=== PATIENT | female | born 1960 | race Caucasian/White ===

== ENCOUNTER 2017-01-02 14:44 | Emergency (ER) | payer OTHER ==
[~2017-01-02] VITALS: Ht 154.9 cm; Wt 47.2 kg
[~2017-01-02 14:44] MED LIST: ALBUTEROL SULF8.5 GM IH; ASPIR-LOW81 MG PO; ATARAX,VISTARIL25 MG PO; ATIVAN0.5 MG PO; AUGMENTIN875 MG PO; CLEOCIN300 MG PO; CLIMARA0.1 MG TP; CLIMARA1 EAC1 TD; CLONIDINE HCL0.1 MG PO; DIPHENHYDRAMINE50 M1 PO; DURAGESIC100 MCG TD; DURAGESIC50 MCG TD; ESTRADERM TD; ESTRADIOL TD; ESTRADIOL TRAN TD; ESTRADIOL1 EAC7; ESTRADIOL1 EAC7 TD; FAMOTIDINE40 MG PO; FENTANYL1 EAC1 TD; FENTANYL1 EAC3 TD; FLEXERIL10 MG PO; Flonase BOTH NARES; HYDROCHLOROTH12.5 M3; INDERAL10 MG PO; IRON325 M1 PO; KEFLEX500 MG PO; LEVAQUIN500 MG PO; LEVOFLOXACIN750 MG PO; LISINOPRIL10 MG; LISINOPRIL10 MG PO; LISINOPRIL20 MG PO; LOW DOSE ASPIRI81 M1 PO; Levaquin PO; MEDROXYPROGESTER5 MG PO; METHYLPHENIDATE20 M1 PO; METOCLOPRAMIDE10 MG PO; MINIVELLE1 EAC1 TD; MINIVELLE1 EACH TD; MUCINEX600 MG PO; NICODERM CQ1 EAC2 TD; NIFEDIPINE ER30 MG PO; NITROFURANTOIN50 MG PO; NORCO 5/3251 TABLET PO; NORVASC10 MG PO; OXYCODONE HCL10 MG PO; OXYCODONE HCL5 MG PO; OXYCODONE-APAP1 EACH; OXYCODONE-APAP1 EACH PO; PANTOPRAZOLE SO40 MG PO; PERCOCET 10-321 EACH PO; PERCOCET 10/1 TABLET PO; PERCOCET 5/31 TABLET PO; PRINIVIL20 MG PO; PROAIR HFA8.5 GM IH; PROMETHAZINE HC25 M1 PO; PROZAC20 M1 PO; PROZAC20 MG PO; PROZAC40 MG PO; PYRIDIUM100 MG PO; RANITIDINE HCL300 MG; REGLAN10 MG PO; REGLAN5 MG PO; RISPERDAL0.25 M1 PO; RISPERDAL1 MG PO; RITALIN10 MG PO; RITALIN20 MG PO; ROXICODONE5 MG PO; SEROQUEL50 MG PO; ULTRAM50 MG PO; VENTOLIN HFA18 GM IH; VIVELLE-DOT0.0375 MG TD; XANAX0.5 MG PO; XANAX1 MG PO; Xanax PO; ZANTAC150 MG PO; ZANTAC300 MG PO; ZOFRAN ODT4 MG PO; ZOFRAN4 MG PO; ZOFRAN8 MG PO; ZOLPIDEM TARTRAT5 MG PO; Zestril,Prinivil PO; [UNRECOGNIZED DRUG - OTHER] TD; [UNRECOGNIZED DRUG - REMARK]; dilaudid PO; lisinopril; tylenol; zyprexa
[2017-01-02 15:29] LABS: EOSINOPHIL (%) 1.5 % (0-5); EOSINOPHIL COUNT 0.1 K/uL (0-0.3); HEMATOCRIT 42.9 % (36.0-46.0); IMMATURE GRANULOCYTE (%) 0.4 % (0.0-0.7); IMMATURE GRANULOCYTE COUNT 0.3 K/uL; LYMPHOCYTE COUNT 1.8 K/uL (1.0-2.8); MCH 31.5 PG (29.0-34.0); MCHC 33.3 G/DL (30.0-36.0); MCV 94.5 FL (83-99); MEAN PLAT.VOLUME 8.8 uM^3 (9.5-12.4); MONOCYTE (%) 9.3 % (3-12); MONOCYTE COUNT 0.8 K/uL (0-0.8); NEUTROPHIL (%) 66.8 % (45-76); NEUTROPHIL COUNT 5.5 K/uL (1.8-6.4); PLATELET COUNT 327 K/uL (156-360); RBC DIS.WIDTH-CV 13.5 % (11.8-14.6); RBC DIS.WIDTH-SD 44.2 % (39-53); RED BLOOD COUNT 4.54 M/uL (3.80-5.20); WHITE BLOOD COUNT 8.2 K/uL (4.1-10.2)
[2017-01-02 15:41] LABS: CHLORIDE 111 mEq/L (99-109); SODIUM 144 mEq/L (136-147)
[2017-01-02 15:43] LABS: GLUCOSE 94 mg/dL (70-99)
[2017-01-02 15:45] LABS: ANION GAP 13 MEQ/L (2-14)
[2017-01-02 15:47] LABS: GFR ESTIMATE (CALCULATED) > 59 mL/min/
[2017-01-02 15:48] LABS: UREA NITROGEN (BUN) 11 mg/dL (9-23)
[2017-01-02] MEDS ORDERED: LISINOPRIL20 MG PO (16:57)
[2017-01-02] MEDS ORDERED: AMOXICILLIN500 MG PO (16:57)
[2017-01-02 17:05] VITALS: BP 210/100
[2017-01-03] MEDS ORDERED: NAPROSYN500 MG PO (05:54)
== END 2017-01-02 17:22 | disposition home or self-care (01) ==
LOC: EME 14:44
PROVIDERS: Emergency Medicine
DX: J32.9 Chronic sinusitis, unspecified (principal); I10 Essential (primary) hypertension; S60.221A Contusion of right hand, initial encounter; J44.9 Chronic obstructive pulmonary disease, unspecified; Z87.442 Personal history of urinary calculi; F17.200 Nicotine dependence, unspecified, uncomplicated
CPT/HCPCS: 70450; 70486; 73130; 80048; 85025; 99281; 99284

== ENCOUNTER 2017-01-03 04:55 | Emergency (ER) | payer OTHER ==
[~2017-01-03] VITALS: Ht 154.9 cm; Wt 49.0 kg
[~2017-01-03 04:55] MED LIST changes: +AMOXICILLIN500 MG PO
[2017-01-03 04:59] VITALS: BP 154/106
[2017-01-03] MEDS ORDERED: NAPROSYN500 MG PO (05:54)
== END 2017-01-03 06:35 | disposition home or self-care (01) ==
LOC: EME 04:55
DX: M79.1 Myalgia (principal); T69.9XXA Effect of reduced temperature, unspecified, initial encounter; Z59.0 Homelessness
CPT/HCPCS: 99281; 99284

== ENCOUNTER 2017-01-13 03:12 | Observation (INO) | payer OTHER ==
[~2017-01-13] VITALS: Ht 154.9 cm; Wt 46.9 kg
[~2017-01-13 03:12] MED LIST changes: +NAPROSYN500 MG PO
[2017-01-13 03:41] LABS: MCH 31.4 PG (29.0-34.0); MCHC 33.6 G/DL (30.0-36.0); MCV 93.2 FL (83-99); MEAN PLAT.VOLUME 8.6 uM^3 (9.5-12.4); PLATELET COUNT 441 K/uL (156-360); RBC DIS.WIDTH-CV 13.8 % (11.8-14.6); RED BLOOD COUNT 4.72 M/uL (3.80-5.20); WHITE BLOOD COUNT 12.3 K/uL (4.1-10.2)
[2017-01-13 03:50] LABS: CHLORIDE 109 mEq/L (99-109); POTASSIUM 3.7 mEq/L (3.7-5.4); SODIUM 146 mEq/L (136-147)
[2017-01-13 03:53] LABS: GLUCOSE 108 mg/dL (70-99)
[2017-01-13 03:54] LABS: ANION GAP 11 MEQ/L (2-14)
[2017-01-13 03:55] LABS: TOTAL BILIRUBIN 0.1 mg/dL (0.0-1.0)
[2017-01-13 03:56] LABS: ALKALINE PHOSPHATASE 74 IU/L (3-129); GFR ESTIMATE (CALCULATED) > 59 mL/min/
[2017-01-13 03:57] LABS: UREA NITROGEN (BUN) 13 mg/dL (9-23)
[2017-01-13 04:00] LABS: LIPASE 87 U/L (1.0-51.0)
[2017-01-13 04:01] LABS: TROP-I INTERPRETATION NEGATIVE; TROPONIN-I < 0.01 ng/mL (0.0-0.30)
[2017-01-13 04:38] LABS: SERUM ETHYL ALCOHOL 11 mg/dL
[2017-01-13 05:20] LABS: ADD MIUA? YES; BILIRUBIN NEGATIVE; BLOOD NEGATIVE; COLOR YELLOW ((YELLOW)); GLUCOSE (STRIP) 150; KETONES NEGATIVE; LEUKOCYTES NEGATIVE; NITRITE NEGATIVE; PROTEIN (STRIP) 30; UROBILINOGEN 0.2 MG/DL (0.2-1.0)
[2017-01-13 05:43] LABS: BACTERIA NONE SEEN /HPF; EPITHELIAL CELLS RARE /HPF; MUCUS 2+ /LPF; RED BLOOD CELLS 0-5 /HPF (0-5); UCUL ADDED? NO; WHITE BLOOD CELLS 0-5 /HPF (0-5)
[2017-01-13 09:54] VITALS: BP 185/86
[2017-01-13 11:52] VITALS: BP 167/81
[2017-01-13 15:13] VITALS: BP 184/88
[2017-01-13 15:44] VITALS: BP 104/61
[2017-01-13] MEDS ORDERED: METRONIDAZOLE500 MG PO (16:20)
[2017-01-13] MEDS ORDERED: CIPRO500 MG PO (16:20)
[2017-01-13] MEDS ORDERED: PRINIVIL20 MG PO (16:23)
== END 2017-01-13 17:13 | disposition home or self-care (01) ==
LOC: EME → EDBD 03:12 → EDOF 08:26 → 5WEST 09:02
PROVIDERS: Emergency Medicine
DX: R10.9 Unspecified abdominal pain (principal); R19.7 Diarrhea, unspecified; R07.9 Chest pain, unspecified; F11.20 Opioid dependence, uncomplicated; F10.10 Alcohol abuse, uncomplicated; I10 Essential (primary) hypertension; F25.9 Schizoaffective disorder, unspecified; J44.9 Chronic obstructive pulmonary disease, unspecified
CPT/HCPCS: 71010; 74177; 80053; 81003; 83605; 83690; 84484; 85027; 87493; 93005; 99281; 99285; G0378; G0480; J0744; J1170; J2270; J2405; J3010; J7030; J7050; S0030

== ENCOUNTER 2017-04-05 19:29 | Emergency (ER) | payer OTHER ==
[~2017-04-05] VITALS: Ht 154.9 cm; Wt 47.7 kg
[~2017-04-05 19:29] MED LIST changes: +CIPRO500 MG PO; +METRONIDAZOLE500 MG PO
[2017-04-05 20:00] VITALS: BP 117/98
== END 2017-04-05 20:26 ==
LOC: EME 19:29
DX: F10.129 Alcohol abuse with intoxication, unspecified (principal); F17.200 Nicotine dependence, unspecified, uncomplicated
CPT/HCPCS: 99281; 99282

== ENCOUNTER 2017-05-04 19:18 | Inpatient (IN) | payer OTHER ==
[~2017-05-04] VITALS: Ht 154.9 cm; Wt 49.6 kg
[2017-05-04 21:25] LABS: CHLORIDE 105 mEq/L (99-109); POTASSIUM 3.4 mEq/L (3.7-5.4); SODIUM 138 mEq/L (136-147)
[2017-05-04 21:27] LABS: GLUCOSE 108 mg/dL (70-99)
[2017-05-04 21:28] LABS: ANION GAP 12 MEQ/L (2-14)
[2017-05-04 21:29] LABS: TOTAL BILIRUBIN 0.6 mg/dL (0.0-1.0)
[2017-05-04 21:30] LABS: SERUM ETHYL ALCOHOL 26 mg/dL
[2017-05-04 21:31] LABS: ALKALINE PHOSPHATASE 63 IU/L (3-129); GFR ESTIMATE (CALCULATED) > 59 mL/min/
[2017-05-04 21:32] LABS: UREA NITROGEN (BUN) 7 mg/dL (9-23)
[2017-05-04 22:02] LABS: ADD MIUA? YES; BILIRUBIN NEGATIVE; BLOOD MODERATE; COLOR YELLOW ((YELLOW)); GLUCOSE (STRIP) NEGATIVE; KETONES NEGATIVE; LEUKOCYTES MODERATE; NITRITE NEGATIVE; PROTEIN (STRIP) 30; SPECIFIC GRAVITY 1.005 (1.000-1.030); UROBILINOGEN 0.2 MG/DL (0.2-1.0)
[2017-05-04 22:07] LABS: BACTERIA RARE /HPF; EPITHELIAL CELLS RARE /HPF; MUCUS TRACE /LPF; UCUL ADDED? NO; WHITE BLOOD CELLS 30-40 /HPF (0-5)
[2017-05-04] MEDS ORDERED: ATARAX,VISTARIL25 MG PO (23:25)
[2017-05-04] MEDS ORDERED: NEURONTIN100 MG PO (23:25)
[2017-05-04 23:53] LABS: EOSINOPHIL (%) 0.1 % (0-5); HEMATOCRIT 37.3 % (36.0-46.0); IMMATURE GRANULOCYTE (%) 0.6 % (0.0-0.7); IMMATURE GRANULOCYTE COUNT 0.1 K/uL; INSTRUMENT ABS NEUTROPHIL CT 14.8 K/uL; MCH 32.6 PG (29.0-34.0); MCV 95.9 FL (83-99); MEAN PLAT.VOLUME 9.3 uM^3 (9.5-12.4); MONOCYTE (%) 10.8 % (3-12); MONOCYTE COUNT 1.9 K/uL (0-0.8); NEUTROPHIL (%) 82.5 % (45-76); NEUTROPHIL COUNT 14.8 K/uL (1.8-6.4); PLATELET COUNT 252 K/uL (156-360); RBC DIS.WIDTH-CV 14.4 % (11.8-14.6); RBC DIS.WIDTH-SD 50.5 % (39-53); RED BLOOD COUNT 3.89 M/uL (3.80-5.20); WHITE BLOOD COUNT 17.9 K/uL (4.1-10.2)
[2017-05-05] VITALS (7 sets, daily range): BP systolic 129–176; BP diastolic 73–99
[2017-05-05 06:55] LABS: EOSINOPHIL (%) 0.1 % (0-5); HEMATOCRIT 38.1 % (36.0-46.0); IMMATURE GRANULOCYTE (%) 0.5 % (0.0-0.7); IMMATURE GRANULOCYTE COUNT 0.1 K/uL; INSTRUMENT ABS NEUTROPHIL CT 14.8 K/uL; LYMPHOCYTE COUNT 1.5 K/uL (1.0-2.8); MCH 33.3 PG (29.0-34.0); MCHC 34.1 G/DL (30.0-36.0); MCV 97.7 FL (83-99); MEAN PLAT.VOLUME 9.6 uM^3 (9.5-12.4); MONOCYTE (%) 12.9 % (3-12); MONOCYTE COUNT 2.4 K/uL (0-0.8); NEUTROPHIL (%) 78.6 % (45-76); NEUTROPHIL COUNT 14.8 K/uL (1.8-6.4); PLATELET COUNT 258 K/uL (156-360); RBC DIS.WIDTH-CV 14.5 % (11.8-14.6); RBC DIS.WIDTH-SD 52.2 % (39-53); WHITE BLOOD COUNT 18.8 K/uL (4.1-10.2)
[2017-05-05 07:16] LABS: ANION GAP 11 MEQ/L (2-14); CHLORIDE 104 MEQ/L (99-109); GFR ESTIMATE (CALCULATED) > 59 mL/min/; GLUCOSE 148 mg/dL (70-99); SAMPLE HEMOLYSIS CHECK 0; SAMPLE ICTERIC CHECK 0; SAMPLE LIPEMIA CHECK 0; SODIUM 136 MEQ/L (136-147); UREA NITROGEN (BUN) 10 mg/dL (9-23)
[2017-05-05 07:20] LABS: POTASSIUM 4.6 MEQ/L (3.7-5.4)
[2017-05-05 09:29] LABS: INTERNAL CONTROL VALID? YES
[2017-05-06] VITALS: BP 155/78
[2017-05-06 04:18] VITALS: BP 159/93
[2017-05-06 06:48] LABS: MCH 32.8 PG (29.0-34.0); MCHC 33.2 G/DL (30.0-36.0); MCV 98.6 FL (83-99); MEAN PLAT.VOLUME 9.4 uM^3 (9.5-12.4); PLATELET COUNT 249 K/uL (156-360); RBC DIS.WIDTH-CV 14.2 % (11.8-14.6); RBC DIS.WIDTH-SD 50.9 % (39-53); RED BLOOD COUNT 3.45 M/uL (3.80-5.20)
[2017-05-06 07:58] VITALS: BP 148/94
[2017-05-06 11:41] VITALS: BP 145/78
[2017-05-06 16:16] VITALS: BP 178/96
[2017-05-06 23:24] VITALS: BP 170/99
[2017-05-07 07:36] VITALS: BP 140/82
[2017-05-07 09:07] LABS: HEMATOCRIT 38.1 % (36.0-46.0); MCH 32.8 PG (29.0-34.0); MCHC 33.1 G/DL (30.0-36.0); MCV 99.2 FL (83-99); MEAN PLAT.VOLUME 9.7 uM^3 (9.5-12.4); RBC DIS.WIDTH-SD 51.7 % (39-53); RED BLOOD COUNT 3.84 M/uL (3.80-5.20); WHITE BLOOD COUNT 11.4 K/uL (4.1-10.2)
[2017-05-07 09:08] LABS: PLATELET COUNT 339 K/uL (156-360)
[2017-05-07] MEDS ORDERED: CIPRO500 MG PO (12:54)
== END 2017-05-07 15:29 | disposition home or self-care (01) | DRG 872 ==
LOC: EME 19:18 → 3EAST 23:41 → EDOF 23:41 → 3EAST 05-05 04:48
PROVIDERS: Emergency Medicine; Internal Medicine
DX: A41.51 Sepsis due to Escherichia coli [E. coli] (principal); F17.210 Nicotine dependence, cigarettes, uncomplicated; G89.4 Chronic pain syndrome; I10 Essential (primary) hypertension; F10.230 Alcohol dependence with withdrawal, uncomplicated; F10.220 Alcohol dependence with intoxication, uncomplicated; Y90.1 Blood alcohol level of 20-39 mg/100 ml; E61.1 Iron deficiency; J43.9 Emphysema, unspecified; E87.6 Hypokalemia; F25.9 Schizoaffective disorder, unspecified; J98.4 Other disorders of lung; K86.1 Other chronic pancreatitis; J98.11 Atelectasis; N13.30 Unspecified hydronephrosis; C95.90 Leukemia, unspecified not having achieved remission; R09.02 Hypoxemia; N28.89 Other specified disorders of kidney and ureter; K86.81 Exocrine pancreatic insufficiency; R16.0 Hepatomegaly, not elsewhere classified; K57.30 Diverticulosis of large intestine without perforation or abscess without bleeding; M41.9 Scoliosis, unspecified; J84.10 Pulmonary fibrosis, unspecified; I51.7 Cardiomegaly; N39.0 Urinary tract infection, site not specified; Z59.0 Homelessness; Z85.43 Personal history of malignant neoplasm of ovary; Z87.442 Personal history of urinary calculi; Z91.19 Patient's noncompliance with other medical treatment and regimen
CPT/HCPCS: 71020; 71250; 74177; 76770; 80048; 80053; 81003; 82105 90; 83605; 85025; 85027; 87040; 87070; 87077; 87086; 87168; 87186; 87205; 87449; 87801; 99202; 99281; 99285; G0480; J0696; J1170; J1644; J1956; J2405; J2543; J3010; J3411; J3475; J7030; J7050; Q0177

== ENCOUNTER 2017-06-04 12:12 | Emergency (ER) | payer OTHER ==
[~2017-06-04] VITALS: Ht 154.9 cm; Wt 49.2 kg
[~2017-06-04 12:12] MED LIST changes: +NEURONTIN100 MG PO
[2017-06-04 12:51] LABS: ADD MIUA? YES; BILIRUBIN NEGATIVE; BLOOD SMALL; COLOR YELLOW ((YELLOW)); GLUCOSE (STRIP) NEGATIVE; KETONES NEGATIVE; LEUKOCYTES NEGATIVE; NITRITE NEGATIVE; PROTEIN (STRIP) NEGATIVE; SPECIFIC GRAVITY 1.008 (1.000-1.030); UROBILINOGEN 0.2 MG/DL (0.2-1.0)
[2017-06-04 13:08] LABS: BACTERIA 3+ /HPF; EPITHELIAL CELLS 1+ /HPF; MUCUS TRACE /LPF; UCUL ADDED? NO; WHITE BLOOD CELLS 0-5 /HPF (0-5)
[2017-06-04 15:11] LABS: HEMATOCRIT 41.2 % (36.0-46.0); MCHC 33.5 G/DL (30.0-36.0); MCV 98.6 FL (83-99); MEAN PLAT.VOLUME 8.8 uM^3 (9.5-12.4); PLATELET COUNT 312 K/uL (156-360); RBC DIS.WIDTH-CV 13.5 % (11.8-14.6); RBC DIS.WIDTH-SD 49.2 % (39-53); RED BLOOD COUNT 4.18 M/uL (3.80-5.20)
[2017-06-04 15:25] LABS: CHLORIDE 111 mEq/L (99-109); POTASSIUM 3.7 mEq/L (3.7-5.4); SODIUM 140 mEq/L (136-147)
[2017-06-04 15:27] LABS: GLUCOSE 122 mg/dL (70-99)
[2017-06-04 15:28] LABS: ANION GAP 9 MEQ/L (2-14)
[2017-06-04 15:29] LABS: TOTAL BILIRUBIN 0.3 mg/dL (0.0-1.0)
[2017-06-04 15:31] LABS: ALKALINE PHOSPHATASE 75 IU/L (3-129); GFR ESTIMATE (CALCULATED) 45 mL/min/
[2017-06-04 15:32] LABS: UREA NITROGEN (BUN) 11 mg/dL (9-23)
[2017-06-04 15:34] LABS: LIPASE 556 U/L (1.0-51.0)
[2017-06-04 16:00] LABS: AMYLASE 101 IU/L (1-118)
[2017-06-04] MEDS ORDERED: PERCOCET 5/31 TABLET PO (18:45)
[2017-06-04] MEDS ORDERED: ZOFRAN4 MG PO (18:47)
[2017-06-04 18:57] VITALS: BP 158/104
== END 2017-06-04 19:49 | disposition home or self-care (01) ==
LOC: EME 12:12
DX: M25.552 Pain in left hip (principal); M25.551 Pain in right hip; F17.200 Nicotine dependence, unspecified, uncomplicated; Z87.442 Personal history of urinary calculi; Z88.1 Allergy status to other antibiotic agents; Z88.6 Allergy status to analgesic agent
CPT/HCPCS: 72170; 76705; 80053; 81003; 82150; 83690; 85027; 99281; 99284

== ENCOUNTER 2017-06-10 12:05 | Observation (INO) | payer OTHER ==
[~2017-06-10] VITALS: Ht 154.9 cm; Wt 48.7 kg
[2017-06-10 12:59] LABS: EOSINOPHIL (%) 0.1 % (0-5); HEMATOCRIT 41.6 % (36.0-46.0); IMMATURE GRANULOCYTE (%) 0.4 % (0.0-0.7); INSTRUMENT ABS NEUTROPHIL CT 9.9 K/uL; LYMPHOCYTE COUNT 0.7 K/uL (1.0-2.8); MCH 32.8 PG (29.0-34.0); MCHC 34.4 G/DL (30.0-36.0); MCV 95.4 FL (83-99); MONOCYTE (%) 2.8 % (3-12); MONOCYTE COUNT 0.3 K/uL (0-0.8); NEUTROPHIL (%) 90.7 % (45-76); NEUTROPHIL COUNT 9.9 K/uL (1.8-6.4); RBC DIS.WIDTH-SD 45.6 % (39-53); RED BLOOD COUNT 4.36 M/uL (3.80-5.20)
[2017-06-10 13:01] LABS: MEAN PLAT.VOLUME 9.6 uM^3 (9.5-12.4); PLATELET COUNT 318 K/uL (156-360)
[2017-06-10 13:21] LABS: TROP-I INTERPRETATION NEGATIVE; TROPONIN-I < 0.01 ng/mL (0.0-0.30)
[2017-06-10 13:39] LABS: CHLORIDE 101 mEq/L (99-109); POTASSIUM 4.1 mEq/L (3.7-5.4); SODIUM 135 mEq/L (136-147)
[2017-06-10 13:40] LABS: GLUCOSE 103 mg/dL (70-99)
[2017-06-10 13:42] LABS: ANION GAP 15 MEQ/L (2-14)
[2017-06-10 13:44] LABS: GFR ESTIMATE (CALCULATED) > 59 mL/min/
[2017-06-10 13:45] LABS: UREA NITROGEN (BUN) 7 mg/dL (9-23)
[2017-06-10 15:32] LABS: LIPASE 21 U/L (1.0-51.0)
[2017-06-10 16:07] VITALS: BP 131/84
[2017-06-11] MEDS ORDERED: LIBRIUM25 MG PO (19:38)
== END 2017-06-10 15:00 | disposition left against medical advice (07) ==
LOC: EME 12:05 → EDOF 14:12
PROVIDERS: Emergency Medicine
DX: R07.2 Precordial pain (principal); Z86.73 Personal history of transient ischemic attack (TIA), and cerebral infarction without residual deficits; I10 Essential (primary) hypertension; F11.20 Opioid dependence, uncomplicated; F10.10 Alcohol abuse, uncomplicated; G89.29 Other chronic pain; M54.9 Dorsalgia, unspecified; J44.9 Chronic obstructive pulmonary disease, unspecified; F25.9 Schizoaffective disorder, unspecified; F17.200 Nicotine dependence, unspecified, uncomplicated; F90.9 Attention-deficit hyperactivity disorder, unspecified type; D64.9 Anemia, unspecified; Z85.43 Personal history of malignant neoplasm of ovary
CPT/HCPCS: 71010; 80048; 83690; 84484; 85025; 93005; 99281; 99285; G0378; J2405; J7030

== ENCOUNTER 2017-06-11 15:43 | Emergency (ER) | payer OTHER ==
[~2017-06-11] VITALS: Ht 154.9 cm; Wt 46.4 kg
[2017-06-11 17:25] LABS: EOSINOPHIL (%) 0.1 % (0-5); HEMATOCRIT 40.9 % (36.0-46.0); IMMATURE GRANULOCYTE (%) 0.4 % (0.0-0.7); INSTRUMENT ABS NEUTROPHIL CT 8.2 K/uL; LYMPHOCYTE COUNT 1.5 K/uL (1.0-2.8); MCH 32.6 PG (29.0-34.0); MCHC 34.2 G/DL (30.0-36.0); MCV 95.3 FL (83-99); MEAN PLAT.VOLUME 9.2 uM^3 (9.5-12.4); MONOCYTE (%) 5.6 % (3-12); MONOCYTE COUNT 0.6 K/uL (0-0.8); NEUTROPHIL (%) 79.4 % (45-76); NEUTROPHIL COUNT 8.2 K/uL (1.8-6.4); PLATELET COUNT 357 K/uL (156-360); RBC DIS.WIDTH-CV 13.1 % (11.8-14.6); RED BLOOD COUNT 4.29 M/uL (3.80-5.20); WHITE BLOOD COUNT 10.3 K/uL (4.1-10.2)
[2017-06-11 17:36] LABS: CHLORIDE 103 mEq/L (99-109); POTASSIUM 3.5 mEq/L (3.7-5.4); SODIUM 136 mEq/L (136-147)
[2017-06-11 17:37] LABS: GLUCOSE 87 mg/dL (70-99)
[2017-06-11 17:39] LABS: ANION GAP 15 MEQ/L (2-14)
[2017-06-11 17:41] LABS: GFR ESTIMATE (CALCULATED) 54 mL/min/; SERUM ETHYL ALCOHOL 18 mg/dL
[2017-06-11 17:42] LABS: UREA NITROGEN (BUN) 10 mg/dL (9-23)
[2017-06-11 17:45] LABS: TROP-I INTERPRETATION NEGATIVE; TROPONIN-I < 0.01 ng/mL (0.0-0.30)
[2017-06-11] MEDS ORDERED: LIBRIUM25 MG PO (19:38)
[2017-06-11 20:09] VITALS: BP 132/92
== END 2017-06-11 20:09 | disposition home or self-care (01) ==
LOC: EME 15:43
PROVIDERS: Emergency Medicine
DX: F10.239 Alcohol dependence with withdrawal, unspecified (principal); R10.11 Right upper quadrant pain; R11.2 Nausea with vomiting, unspecified; R00.0 Tachycardia, unspecified; I10 Essential (primary) hypertension; Z91.14 Patient's other noncompliance with medication regimen; Z90.710 Acquired absence of both cervix and uterus; Z85.43 Personal history of malignant neoplasm of ovary; Z87.442 Personal history of urinary calculi; F17.200 Nicotine dependence, unspecified, uncomplicated
CPT/HCPCS: 80048; 84484; 85025; 99281; 99285; G0480; J3360; J7030

== ENCOUNTER 2017-07-30 18:34 | Inpatient (IN) | payer OTHER ==
[~2017-07-30] VITALS: Ht 154.9 cm; Wt 45.0 kg
[~2017-07-30 18:34] MED LIST changes: +LIBRIUM25 MG PO
[2017-07-30 19:42] LABS: HEMATOCRIT 49.6 % (36.0-46.0); MCH 32.8 PG (29.0-34.0); MCHC 34.7 G/DL (30.0-36.0); MCV 94.5 FL (83-99); MEAN PLAT.VOLUME 10.4 uM^3 (9.5-12.4); PLATELET COUNT 278 K/uL (156-360); RBC DIS.WIDTH-SD 48.6 % (39-53); RED BLOOD COUNT 5.25 M/uL (3.80-5.20); WHITE BLOOD COUNT 12.2 K/uL (4.1-10.2)
[2017-07-30 19:44] LABS: ADD MIUA? YES; BILIRUBIN NEGATIVE; BLOOD SMALL; COLOR STRAW ((YELLOW)); GLUCOSE (STRIP) NEGATIVE; KETONES NEGATIVE; LEUKOCYTES NEGATIVE; NITRITE NEGATIVE; PROTEIN (STRIP) NEGATIVE; SPECIFIC GRAVITY 1.002 (1.000-1.030); UROBILINOGEN 0.2 MG/DL (0.2-1.0)
[2017-07-30 19:52] LABS: CHLORIDE 89 mEq/L (99-109); POTASSIUM 4.2 mEq/L (3.7-5.4); SODIUM 132 mEq/L (136-147)
[2017-07-30 19:54] LABS: GLUCOSE 100 mg/dL (70-99)
[2017-07-30 19:55] LABS: ANION GAP 26 MEQ/L (2-14)
[2017-07-30 19:56] LABS: TOTAL BILIRUBIN 1.1 mg/dL (0.0-1.0)
[2017-07-30 19:57] LABS: ALKALINE PHOSPHATASE 70 IU/L (3-129)
[2017-07-30 19:58] LABS: GFR ESTIMATE (CALCULATED) 27 mL/min/
[2017-07-30 19:59] LABS: UREA NITROGEN (BUN) 17 mg/dL (9-23)
[2017-07-30 20:06] LABS: BACTERIA RARE /HPF; EPITHELIAL CELLS 1+ /HPF; MUCUS NONE SEEN /LPF; RED BLOOD CELLS NONE SEEN /HPF (0-5); UCUL ADDED? NO
[2017-07-30 20:07] LABS: CASTS NONE SEEN /LPF; CRYSTALS NONE SEEN; WHITE BLOOD CELLS 0-5 /HPF (0-5)
[2017-07-30 21:18] LABS: LIPASE 236 U/L (1.0-51.0)
[2017-07-30 21:36] LABS: SERUM ETHYL ALCOHOL 55 mg/dL
[2017-07-30 21:38] LABS: DIRECT BILIRUBIN 0.3 mg/dL (0.0-0.3)
[2017-07-30 22:20] LABS: EOSINOPHIL (%) 0.5 % (0-5); EOSINOPHIL COUNT 0.1 K/uL (0-0.3); IMMATURE GRANULOCYTE (%) 0.4 % (0.0-0.7); IMMATURE GRANULOCYTE COUNT 0.1 K/uL; INSTRUMENT ABS NEUTROPHIL CT 8.6 K/uL; LYMPHOCYTE COUNT 2.3 K/uL (1.0-2.8); MONOCYTE (%) 10.3 % (3-12); MONOCYTE COUNT 1.3 K/uL (0-0.8); NEUTROPHIL (%) 70.3 % (45-76); NEUTROPHIL COUNT 8.6 K/uL (1.8-6.4)
[2017-07-31] VITALS (7 sets, daily range): BP systolic 102–192; BP diastolic 52–94
[2017-07-31] MEDS ORDERED: MUCINEX600 MG PO (01:10)
[2017-07-31] MEDS ORDERED: LISINOPRIL20 MG PO (01:10)
[2017-07-31] MEDS ORDERED: CHLORDIAZEPOXID10 MG PO (01:11)
[2017-07-31] MEDS ORDERED: ONDANSETRON HCL4 MG PO (01:12)
[2017-07-31] MEDS ORDERED: ENDOCET 5-3251 EACH PO (01:14)
[2017-07-31] MEDS ORDERED: METHYLPHENIDATE20 M1 PO (01:15)
[2017-07-31] MEDS ORDERED: ZESTRIL20 MG PO (01:16)
[2017-07-31 07:13] LABS: MAGNESIUM 1.5 mg/dl (1.3-2.7)
[2017-07-31 07:42] LABS: HEMATOCRIT 41.1 % (36.0-46.0); MCH 33.7 PG (29.0-34.0); MCHC 33.8 G/DL (30.0-36.0); MEAN PLAT.VOLUME 10.2 uM^3 (9.5-12.4); PLATELET COUNT 228 K/uL (156-360); RBC DIS.WIDTH-CV 14.7 % (11.8-14.6); RBC DIS.WIDTH-SD 53.6 % (39-53); WHITE BLOOD COUNT 8.1 K/uL (4.1-10.2)
[2017-07-31 07:48] LABS: ANION GAP 11 MEQ/L (2-14); CHLORIDE 100 MEQ/L (99-109); GLUCOSE 81 mg/dL (70-99); POTASSIUM 4.1 MEQ/L (3.7-5.4); SODIUM 132 MEQ/L (136-147); UREA NITROGEN (BUN) 24 mg/dL (9-23)
[2017-07-31 07:50] LABS: RED BLOOD COUNT 4.12 M/uL (3.80-5.20)
[2017-07-31 07:51] LABS: GFR ESTIMATE (CALCULATED) 41 mL/min/
[2017-07-31 07:51] LABS: MCV 99.8 FL (83-99)
[2017-07-31 10:02] LABS: ADD MIUA? YES; BILIRUBIN NEGATIVE; BLOOD MODERATE; COLOR YELLOW ((YELLOW)); GLUCOSE (STRIP) 50; KETONES NEGATIVE; LEUKOCYTES TRACE; NITRITE NEGATIVE; PROTEIN (STRIP) NEGATIVE; SPECIFIC GRAVITY 1.012 (1.000-1.030); UROBILINOGEN 0.2 MG/DL (0.2-1.0)
[2017-07-31 10:15] LABS: BACTERIA 2+ /HPF; EPITHELIAL CELLS 2+ /HPF; MUCUS TRACE /LPF; RED BLOOD CELLS 30-40 /HPF (0-5); UCUL ADDED? YES; WHITE BLOOD CELLS 0-5 /HPF (0-5)
[2017-07-31 10:30] LABS: AMPHETAMINES QUANT VALUE 0 NG/ML; BARBITUATES QUANT VALUE 0 NG/ML; BENZODIAZEPINES, URINE SCREEN POSITIVE (200 ng/mL); MARIJUANA QUANT VALUE 0 NG/ML; PHENCYCLIDINE QUANT VALUE 0 NG/ML
[2017-07-31 20:15] LABS: C DIFF TOXIN NEGATIVE (NEGATIVE)
[2017-07-31 20:31] LABS: PROBE CHECK PASS; SPECIMEN PROCESSING CONTROL PASS
[2017-08-01 06:37] LABS: EOSINOPHIL (%) 1.8 % (0-5); EOSINOPHIL COUNT 0.1 K/uL (0-0.3); HEMATOCRIT 36.9 % (36.0-46.0); IMMATURE GRANULOCYTE (%) 0.3 % (0.0-0.7); INSTRUMENT ABS NEUTROPHIL CT 3.8 K/uL; LYMPHOCYTE COUNT 2.2 K/uL (1.0-2.8); MCHC 33.6 G/DL (30.0-36.0); MCV 98.1 FL (83-99); MEAN PLAT.VOLUME 9.2 uM^3 (9.5-12.4); MONOCYTE (%) 14.6 % (3-12); MONOCYTE COUNT 1.1 K/uL (0-0.8); NEUTROPHIL COUNT 3.8 K/uL (1.8-6.4); PLATELET COUNT 202 K/uL (156-360); RBC DIS.WIDTH-CV 14.5 % (11.8-14.6); RBC DIS.WIDTH-SD 51.8 % (39-53); RED BLOOD COUNT 3.76 M/uL (3.80-5.20); WHITE BLOOD COUNT 7.2 K/uL (4.1-10.2)
[2017-08-01 06:57] LABS: ANION GAP 4 MEQ/L (2-14); CHLORIDE 106 MEQ/L (99-109); GFR ESTIMATE (CALCULATED) > 59 mL/min/; GLUCOSE 92 mg/dL (70-99); POTASSIUM 3.8 MEQ/L (3.7-5.4); SAMPLE HEMOLYSIS CHECK 0; SAMPLE ICTERIC CHECK 0; SAMPLE LIPEMIA CHECK 0; SODIUM 135 MEQ/L (136-147); UREA NITROGEN (BUN) 15 mg/dL (9-23)
[2017-08-01 12:40] VITALS: BP 115/67
[2017-08-01 16:31] VITALS: BP 182/83
[2017-08-01 19:30] VITALS: BP 181/84
[2017-08-01 21:22] VITALS: BP 122/76
[2017-08-02 00:36] VITALS: BP 110/70
[2017-08-02 03:17] VITALS: BP 136/81
[2017-08-02 07:49] VITALS: BP 142/86
[2017-08-02] MEDS ORDERED: PROTONIX40 MG PO (09:14)
[2017-08-02] MEDS ORDERED: METHYLPHENIDATE10 M1 PO (09:20)
[2017-08-02] MEDS ORDERED: MUCINEX600 MG PO (09:20)
[2017-08-02] MEDS ORDERED: PRINIVIL20 MG PO (09:20)
[2017-08-02] MEDS ORDERED: BENTYL20 MG PO (09:20)
[2017-08-02] MEDS ORDERED: NICOTINE PATCH1 EAC1 TD (09:20)
[2017-08-02] MEDS ORDERED: ESTRADIOL1 EAC7 TD (09:21)
[2017-08-02] MEDS ORDERED: ONDANSETRON HCL4 MG PO (09:21)
[2017-08-02] MEDS ORDERED: ENDOCET 5-3251 EACH PO (09:21)
== END 2017-08-02 13:50 | disposition home or self-care (01) | DRG 439 ==
LOC: EME 18:34 → RME 18:34 → 5EAST 07-31 02:46 → EDOF 07-31 02:46 → ENRESERV 07-31 02:48 → 5EAST 07-31 04:37
PROVIDERS: Hospitalist; Internal Medicine; Physician Assistant
DX: K85.20 Alcohol induced acute pancreatitis without necrosis or infection (principal); N17.9 Acute kidney failure, unspecified; E87.2 Acidosis; F25.9 Schizoaffective disorder, unspecified; C95.90 Leukemia, unspecified not having achieved remission; E86.0 Dehydration; F10.20 Alcohol dependence, uncomplicated; Y90.2 Blood alcohol level of 40-59 mg/100 ml; F11.24 Opioid dependence with opioid-induced mood disorder; I10 Essential (primary) hypertension; J44.9 Chronic obstructive pulmonary disease, unspecified; K29.20 Alcoholic gastritis without bleeding; K21.9 Gastro-esophageal reflux disease without esophagitis; F13.10 Sedative, hypnotic or anxiolytic abuse, uncomplicated; F41.9 Anxiety disorder, unspecified; F90.9 Attention-deficit hyperactivity disorder, unspecified type; G89.29 Other chronic pain; M54.9 Dorsalgia, unspecified; F17.200 Nicotine dependence, unspecified, uncomplicated; Z59.0 Homelessness; Z85.43 Personal history of malignant neoplasm of ovary; Z87.442 Personal history of urinary calculi
CPT/HCPCS: 74176; 80048; 80053; 80306 90; 81003; 82248; 82948; 83605; 83690; 83735; 85025; 85027; 87077; 87086; 87186; 87493; 99281; 99285; C9113; G0480; J0360; J1170; J1650; J2060; J2405; J2765; J3010; J7030; J7050; J7120

== ENCOUNTER 2017-09-01 15:14 | Inpatient (IN) | payer OTHER ==
[~2017-09-01] VITALS: Ht 154.9 cm; Wt 48.3 kg
[~2017-09-01 15:14] MED LIST changes: +BENTYL20 MG PO; +CHLORDIAZEPOXID10 MG PO; +ENDOCET 5-3251 EACH PO; +METHYLPHENIDATE10 M1 PO; +NICOTINE PATCH1 EAC1 TD; +ONDANSETRON HCL4 MG PO; +PROTONIX40 MG PO; +ZESTRIL20 MG PO
[2017-09-01 16:00] LABS: HEMATOCRIT 37.2 % (36.0-46.0); MCH 33.9 PG (29.0-34.0); MCHC 34.4 G/DL (30.0-36.0); MCV 98.4 FL (83-99); MEAN PLAT.VOLUME 9.3 uM^3 (9.5-12.4); PLATELET COUNT 214 K/uL (156-360); RBC DIS.WIDTH-CV 14.3 % (11.8-14.6); RBC DIS.WIDTH-SD 52.2 % (39-53); RED BLOOD COUNT 3.78 M/uL (3.80-5.20); WHITE BLOOD COUNT 11.9 K/uL (4.1-10.2)
[2017-09-01 16:09] LABS: CHLORIDE 103 mEq/L (99-109); SODIUM 136 mEq/L (136-147)
[2017-09-01 16:12] LABS: GLUCOSE 90 mg/dL (70-99)
[2017-09-01 16:13] LABS: ANION GAP 13 MEQ/L (2-14); TOTAL BILIRUBIN 0.5 mg/dL (0.0-1.0)
[2017-09-01 16:14] LABS: SERUM ETHYL ALCOHOL 93 mg/dL
[2017-09-01 16:15] LABS: ALKALINE PHOSPHATASE 55 IU/L (3-129); GFR ESTIMATE (CALCULATED) > 59 mL/min/
[2017-09-01 16:16] LABS: UREA NITROGEN (BUN) 12 mg/dL (9-23)
[2017-09-01 16:19] LABS: LIPASE 607 U/L (1.0-51.0)
[2017-09-01 16:26] LABS: ADD MIUA? YES; BILIRUBIN NEGATIVE; BLOOD SMALL; COLOR YELLOW ((YELLOW)); GLUCOSE (STRIP) NEGATIVE; KETONES NEGATIVE; LEUKOCYTES NEGATIVE; NITRITE NEGATIVE; PROTEIN (STRIP) 30; SPECIFIC GRAVITY 1.018 (1.000-1.030); UROBILINOGEN 0.2 MG/DL (0.2-1.0)
[2017-09-01 16:40] LABS: BACTERIA 1+ /HPF; CASTS PRESENT /LPF; CRYSTALS NONE SEEN; EPITHELIAL CELLS 1+ /HPF; MUCUS 2+ /LPF; RED BLOOD CELLS 0-5 /HPF (0-5); WHITE BLOOD CELLS 0-5 /HPF (0-5)
[2017-09-01 16:41] LABS: HYALINE CASTS 0-5 /LPF
[2017-09-01] MEDS ORDERED: NICODERM CQ1 EAC2 TD (18:38)
[2017-09-01] MEDS ORDERED: RITALIN20 MG PO (18:39)
[2017-09-01] MEDS ORDERED: ESTRADIOL1 EAC7 TD (18:40)
[2017-09-01] MEDS ORDERED: SUPER MULTIVIT1 EACH PO (18:40)
[2017-09-01] MEDS ORDERED: IRON325 M1 PO (18:41)
[2017-09-01 20:06] LABS: MAGNESIUM 1.7 mg/dL (1.3-2.7)
[2017-09-01 21:33] VITALS: BP 170/82
[2017-09-01 21:43] VITALS: BP 170/82
[2017-09-02] VITALS (8 sets, daily range): BP systolic 120–187; BP diastolic 72–100
[2017-09-02 06:39] LABS: EOSINOPHIL (%) 2.9 % (0-5); EOSINOPHIL COUNT 0.2 K/uL (0-0.3); IMMATURE GRANULOCYTE (%) 0.4 % (0.0-0.7); INSTRUMENT ABS NEUTROPHIL CT 5.8 K/uL; LYMPHOCYTE COUNT 1.3 K/uL (1.0-2.8); MCH 33.2 PG (29.0-34.0); MCHC 33.2 G/DL (30.0-36.0); MEAN PLAT.VOLUME 9.4 uM^3 (9.5-12.4); MONOCYTE (%) 10.3 % (3-12); MONOCYTE COUNT 0.9 K/uL (0-0.8); NEUTROPHIL (%) 70.1 % (45-76); NEUTROPHIL COUNT 5.8 K/uL (1.8-6.4); PLATELET COUNT 215 K/uL (156-360); RBC DIS.WIDTH-CV 14.4 % (11.8-14.6); RBC DIS.WIDTH-SD 52.5 % (39-53); WHITE BLOOD COUNT 8.3 K/uL (4.1-10.2)
[2017-09-02 07:05] LABS: ANION GAP 9 MEQ/L (2-14); CHLORIDE 103 MEQ/L (99-109); GFR ESTIMATE (CALCULATED) > 59 mL/min/; GLUCOSE 74 mg/dL (70-99); LIPASE 271 U/L (1.0-51.0); MAGNESIUM 1.6 mg/dl (1.3-2.7); POTASSIUM 3.7 MEQ/L (3.7-5.4); SAMPLE HEMOLYSIS CHECK 0; SAMPLE ICTERIC CHECK 0; SAMPLE LIPEMIA CHECK 0; SERUM ETHYL ALCOHOL < 10 mg/dL; SODIUM 138 MEQ/L (136-147); UREA NITROGEN (BUN) 11 mg/dL (9-23)
[2017-09-02 21:51] LABS: POINT-OF-CARE METER ID UU14208753
[2017-09-02] MEDS ORDERED: Thiamine,Vitamin B1 PO (22:57)
[2017-09-02] MEDS ORDERED: METOPROLOL SUCC50 MG PO (22:57)
[2017-09-02] MEDS ORDERED: PRINIVIL20 MG PO (22:57)
[2017-09-02] MEDS ORDERED: FOLIC ACID1 MG PO (22:57)
[2017-09-02] MEDS ORDERED: APRESOLINE50 MG PO (22:57)
[2017-09-03 03:37] VITALS: BP 152/80
[2017-09-03 08:06] VITALS: BP 153/84
[2017-09-03] MEDS ORDERED: PANTOPRAZOLE SO40 MG PO (13:57)
== END 2017-09-03 16:05 | disposition home or self-care (01) | DRG 439 ==
LOC: EME 15:14 → 3EAST 19:35 → EDOF 19:35 → ENRESERV 20:19 → 3EAST 21:07
PROVIDERS: Family Medicine Sports Medicine; Nurse Practitioner Family
DX: K85.20 Alcohol induced acute pancreatitis without necrosis or infection (principal); F10.239 Alcohol dependence with withdrawal, unspecified; F15.23 Other stimulant dependence with withdrawal; Y90.4 Blood alcohol level of 80-99 mg/100 ml; E78.5 Hyperlipidemia, unspecified; I10 Essential (primary) hypertension; E86.0 Dehydration; F17.210 Nicotine dependence, cigarettes, uncomplicated; F90.9 Attention-deficit hyperactivity disorder, unspecified type; K86.1 Other chronic pancreatitis; K80.20 Calculus of gallbladder without cholecystitis without obstruction; F10.229 Alcohol dependence with intoxication, unspecified; F11.24 Opioid dependence with opioid-induced mood disorder; F25.9 Schizoaffective disorder, unspecified; F31.9 Bipolar disorder, unspecified; J44.9 Chronic obstructive pulmonary disease, unspecified; K21.9 Gastro-esophageal reflux disease without esophagitis; G89.4 Chronic pain syndrome; F41.9 Anxiety disorder, unspecified; R10.9 Unspecified abdominal pain; F13.10 Sedative, hypnotic or anxiolytic abuse, uncomplicated; K82.9 Disease of gallbladder, unspecified; Z59.0 Homelessness; Z90.710 Acquired absence of both cervix and uterus; Z87.442 Personal history of urinary calculi; Z56.0 Unemployment, unspecified; Z88.5 Allergy status to narcotic agent; Z88.6 Allergy status to analgesic agent; Z82.49 Family history of ischemic heart disease and other diseases of the circulatory system; Z83.6 Family history of other diseases of the respiratory system
CPT/HCPCS: 73630; 74176; 80048; 80053; 81003; 82948; 83690; 83735; 85025; 85027; 99202; 99281; 99285; G0480; J0360; J1650; J2405; J3010; J3411; J7030; J7120

== ENCOUNTER 2017-10-01 16:14 | Emergency (ER) | payer OTHER ==
[~2017-10-01] VITALS: Ht 154.9 cm; Wt 50.0 kg
[~2017-10-01 16:14] MED LIST changes: +APRESOLINE50 MG PO; +FOLIC ACID1 MG PO; +METOPROLOL SUCC50 MG PO; +SUPER MULTIVIT1 EACH PO; +Thiamine,Vitamin B1 PO
[2017-10-01 17:23] LABS: INFLUENZA A VIRAL ANTIGEN NEGATIVE; INFLUENZA B VIRAL ANTIGEN NEGATIVE
[2017-10-01] MEDS ORDERED: VENTOLIN HFA18 GM IH (17:38)
[2017-10-01] MEDS ORDERED: ZITHROMAX Z-PA250 MG PO (17:38)
[2017-10-01 17:48] VITALS: BP 120/99
== END 2017-10-01 17:50 | disposition home or self-care (01) ==
LOC: EME 16:14
PROVIDERS: Physician Assistant
DX: J06.9 Acute upper respiratory infection, unspecified (principal); J02.9 Acute pharyngitis, unspecified; J44.9 Chronic obstructive pulmonary disease, unspecified; I10 Essential (primary) hypertension; F41.9 Anxiety disorder, unspecified; F25.9 Schizoaffective disorder, unspecified; F17.200 Nicotine dependence, unspecified, uncomplicated; Z86.73 Personal history of transient ischemic attack (TIA), and cerebral infarction without residual deficits; Z87.442 Personal history of urinary calculi; Z88.8 Allergy status to other drugs, medicaments and biological substances
CPT/HCPCS: 71020; 87502; 87651 90; 99281; 99284

== ENCOUNTER 2017-10-12 13:43 | Emergency (ER) | payer OTHER ==
[~2017-10-12 13:43] MED LIST changes: +ZITHROMAX Z-PA250 MG PO
[2017-10-13] MEDS ORDERED: ZITHROMAX Z-PA250 MG PO (09:32)
[2017-10-13] MEDS ORDERED: FLEXERIL10 MG PO (10:42)
== END 2017-10-12 14:10 | disposition left against medical advice (07) ==
LOC: EME 13:43
DX: T50.901A Poisoning by unspecified drugs, medicaments and biological substances, accidental (unintentional), initial encounter (principal); Z53.21 Procedure and treatment not carried out due to patient leaving prior to being seen by health care provider

== ENCOUNTER 2017-10-13 07:44 | Emergency (ER) | payer OTHER ==
[~2017-10-13] VITALS: Ht 154.9 cm; Wt 47.9 kg
[2017-10-13] MEDS ORDERED: ZITHROMAX Z-PA250 MG PO (09:32)
[2017-10-13] MEDS ORDERED: FLEXERIL10 MG PO (10:42)
[2017-10-13 10:50] VITALS: BP 187/94
== END 2017-10-13 10:50 | disposition home or self-care (01) ==
LOC: EME 07:44
DX: J20.9 Acute bronchitis, unspecified (principal); J04.0 Acute laryngitis; G89.29 Other chronic pain; M54.5 Low back pain; I10 Essential (primary) hypertension; F17.200 Nicotine dependence, unspecified, uncomplicated; Z88.1 Allergy status to other antibiotic agents; Z88.5 Allergy status to narcotic agent; Z88.8 Allergy status to other drugs, medicaments and biological substances
CPT/HCPCS: 71020; 99281; 99283

== ENCOUNTER 2017-11-08 08:29 | Emergency (ER) | payer OTHER ==
[~2017-11-08] VITALS: Ht 154.9 cm; Wt 45.4 kg
[2017-11-08 10:49] LABS: BASOPHIL COUNT 0.1 K/uL (0-0.1); EOSINOPHIL (%) 0.9 % (0-5); EOSINOPHIL COUNT 0.1 K/uL (0-0.3); HEMATOCRIT 40.4 % (36.0-46.0); IMMATURE GRANULOCYTE (%) 0.4 % (0.0-0.7); LYMPHOCYTE COUNT 1.6 K/uL (1.0-2.8); MCH 34.9 PG (29.0-34.0); MCHC 34.2 G/DL (30.0-36.0); MCV 102.3 FL (83-99); MEAN PLAT.VOLUME 10.1 uM^3 (9.5-12.4); MONOCYTE (%) 8.8 % (3-12); MONOCYTE COUNT 0.8 K/uL (0-0.8); NEUTROPHIL (%) 72.5 % (45-76); PLATELET COUNT 324 K/uL (156-360); RBC DIS.WIDTH-CV 13.2 % (11.8-14.6); RBC DIS.WIDTH-SD 50.4 % (39-53); RED BLOOD COUNT 3.95 M/uL (3.80-5.20); WHITE BLOOD COUNT 9.6 K/uL (4.1-10.2)
[2017-11-08 11:00] LABS: CHLORIDE 102 mEq/L (99-109); POTASSIUM 4.6 mEq/L (3.7-5.4); SODIUM 138 mEq/L (136-147)
[2017-11-08 11:01] LABS: MAGNESIUM 2.4 mg/dL (1.3-2.7)
[2017-11-08 11:03] LABS: GLUCOSE 89 mg/dL (70-99)
[2017-11-08 11:04] LABS: ANION GAP 12 MEQ/L (2-14)
[2017-11-08 11:05] LABS: TOTAL BILIRUBIN 0.5 mg/dL (0.0-1.0)
[2017-11-08 11:06] LABS: ALKALINE PHOSPHATASE 58 IU/L (3-129); GFR ESTIMATE (CALCULATED) > 59 mL/min/
[2017-11-08 11:08] LABS: UREA NITROGEN (BUN) 16 mg/dL (9-23)
[2017-11-08] MEDS ORDERED: LIDODERM 5% P1 PATCH TD (13:04)
[2017-11-08] MEDS ORDERED: ZOFRAN4 MG PO (13:06)
[2017-11-08] MEDS ORDERED: LISINOPRIL20 MG PO (13:24)
[2017-11-08 14:09] VITALS: BP 192/109
== END 2017-11-08 14:10 | disposition home or self-care (01) ==
LOC: EME 08:29
PROVIDERS: Physician Assistant
DX: Z76.0 Encounter for issue of repeat prescription (principal); R11.2 Nausea with vomiting, unspecified; F10.129 Alcohol abuse with intoxication, unspecified; S90.822A Blister (nonthermal), left foot, initial encounter; G89.29 Other chronic pain; M54.9 Dorsalgia, unspecified; I10 Essential (primary) hypertension; J44.9 Chronic obstructive pulmonary disease, unspecified; F41.9 Anxiety disorder, unspecified; F25.9 Schizoaffective disorder, unspecified; F17.200 Nicotine dependence, unspecified, uncomplicated; Z86.73 Personal history of transient ischemic attack (TIA), and cerebral infarction without residual deficits; Z85.9 Personal history of malignant neoplasm, unspecified; Z88.5 Allergy status to narcotic agent; Z88.1 Allergy status to other antibiotic agents; Z88.6 Allergy status to analgesic agent
CPT/HCPCS: 80053; 83735; 85025; J7050; J7120

== ENCOUNTER 2017-11-18 23:10 | Emergency (ER) | payer OTHER ==
[~2017-11-18] VITALS: Ht 154.9 cm; Wt 47.1 kg
[~2017-11-18 23:10] MED LIST changes: +LIDODERM 5% P1 PATCH TD
[2017-11-18 23:32] VITALS: BP 204/127
[2017-11-19 01:11] LABS: HEMATOCRIT 40.6 % (36.0-46.0); HEMOGLOBIN 13.8 G/DL (11.9-15.5); MCH 34.7 PG (29.0-34.0); PLATELET COUNT 273 K/uL (156-360); RBC DIS.WIDTH-CV 12.7 % (11.8-14.6); RBC DIS.WIDTH-SD 47.9 % (39-53); RED BLOOD COUNT 3.98 M/uL (3.80-5.20); WHITE BLOOD COUNT 10.3 K/uL (4.1-10.2)
[2017-11-19] MEDS ORDERED: CLIMARA0.1 MG TP (01:29)
[2017-11-19] MEDS ORDERED: LIBRIUM25 MG PO (01:29)
[2017-11-19 01:33] LABS: CHLORIDE 103 mEq/L (99-109); POTASSIUM 3.6 mEq/L (3.7-5.4); SODIUM 139 mEq/L (136-147)
[2017-11-19 01:34] LABS: GLUCOSE 102 mg/dL (70-99)
[2017-11-19 01:38] LABS: CREATININE 1.1 mg/dL (0.6-1.3); GFR ESTIMATE (CALCULATED) 54 mL/min/
[2017-11-19 01:39] LABS: UREA NITROGEN (BUN) 16 mg/dL (9-23)
[2017-11-19 02:44] LABS: APPEARANCE CLOUDY ((CLEAR)); BILIRUBIN NEGATIVE; BLOOD SMALL; COLOR YELLOW ((YELLOW)); GLUCOSE (STRIP) 50; KETONES NEGATIVE; LEUKOCYTES TRACE; NITRITE NEGATIVE; PROTEIN (STRIP) 100; SPECIFIC GRAVITY 1.021 (1.000-1.030)
[2017-11-19 02:50] LABS: BACTERIA RARE /HPF; CALCIUM OXALATE CRYSTALS 1+ /HPF; EPITHELIAL CELLS RARE /HPF; MUCUS 2+ /LPF; RED BLOOD CELLS 30-40 /HPF (0-5); UCUL ADDED? YES
== END 2017-11-19 02:32 | disposition home or self-care (01) ==
LOC: EME 23:10
DX: Z76.0 Encounter for issue of repeat prescription (principal); G89.29 Other chronic pain; F10.129 Alcohol abuse with intoxication, unspecified; R63.4 Abnormal weight loss; M54.2 Cervicalgia; Z79.890 Hormone replacement therapy; F17.200 Nicotine dependence, unspecified, uncomplicated
CPT/HCPCS: 80048; 81003; 85027; 87086; 99281; 99284

== ENCOUNTER 2017-11-21 07:59 | Emergency (ER) | payer OTHER ==
[~2017-11-21] VITALS: Ht 154.9 cm; Wt 59.1 kg
[2017-11-21 12:44] LABS: CHLORIDE 107 mEq/L (99-109); POTASSIUM 4.2 mEq/L (3.7-5.4); SODIUM 139 mEq/L (136-147)
[2017-11-21 12:46] LABS: GLUCOSE 79 mg/dL (70-99)
[2017-11-21 12:49] LABS: CREATININE 0.9 mg/dL (0.6-1.3); GFR ESTIMATE (CALCULATED) > 59 mL/min/
[2017-11-21 12:50] LABS: UREA NITROGEN (BUN) 20 mg/dL (9-23)
[2017-11-21 12:52] LABS: CREATINE KINASE 60 IU/L (1-294)
[2017-11-21] MEDS ORDERED: PERCOCET 10/1 TABLET PO (13:01)
[2017-11-21 13:13] VITALS: BP 149/93
== END 2017-11-21 13:13 | disposition home or self-care (01) ==
LOC: EME 07:59
PROVIDERS: Physician Assistant
DX: M79.605 Pain in left leg (principal); M79.604 Pain in right leg; J44.9 Chronic obstructive pulmonary disease, unspecified; I10 Essential (primary) hypertension; F41.9 Anxiety disorder, unspecified; F25.9 Schizoaffective disorder, unspecified; F17.200 Nicotine dependence, unspecified, uncomplicated; Z86.73 Personal history of transient ischemic attack (TIA), and cerebral infarction without residual deficits; Z90.710 Acquired absence of both cervix and uterus; Z85.9 Personal history of malignant neoplasm, unspecified; Z88.5 Allergy status to narcotic agent; Z88.6 Allergy status to analgesic agent; Z88.8 Allergy status to other drugs, medicaments and biological substances; Z88.1 Allergy status to other antibiotic agents
CPT/HCPCS: 80048; 82550; 99281; 99283

== ENCOUNTER 2017-11-22 17:57 | Emergency (ER) | payer OTHER ==
[~2017-11-22] VITALS: Ht 154.9 cm; Wt 50.0 kg
[2017-11-22 17:59] VITALS: BP 161/104
== END 2017-11-22 21:19 | disposition home or self-care (01) ==
LOC: EME 17:57
DX: G89.29 Other chronic pain (principal); M54.5 Low back pain; M79.604 Pain in right leg; M79.605 Pain in left leg; Z88.5 Allergy status to narcotic agent; F17.200 Nicotine dependence, unspecified, uncomplicated
CPT/HCPCS: 99281; 99284

== ENCOUNTER 2017-11-30 08:05 | Emergency (ER) | payer OTHER ==
[~2017-11-30] VITALS: Ht 154.9 cm; Wt 56.6 kg
[2017-11-30 08:49] LABS: HEMATOCRIT 41.2 % (36.0-46.0); HEMOGLOBIN 14.1 G/DL (11.9-15.5); MCH 34.8 PG (29.0-34.0); MCHC 34.2 G/DL (30.0-36.0); MCV 101.7 FL (83-99); PLATELET COUNT 307 K/uL (156-360); RBC DIS.WIDTH-CV 12.9 % (11.8-14.6); RBC DIS.WIDTH-SD 48.5 % (39-53); RED BLOOD COUNT 4.05 M/uL (3.80-5.20); WHITE BLOOD COUNT 10.1 K/uL (4.1-10.2)
[2017-11-30 09:00] LABS: ALBUMIN 3.7 g/dL (3.2-4.8); CHLORIDE 108 mEq/L (99-109); POTASSIUM 4.4 mEq/L (3.7-5.4); SODIUM 138 mEq/L (136-147)
[2017-11-30 09:01] LABS: AMYLASE 39 IU/L (1-118)
[2017-11-30 09:03] LABS: GLUCOSE 105 mg/dL (70-99); TOTAL PROTEIN 6.1 g/dL (6.4-8.3)
[2017-11-30 09:05] LABS: TOTAL BILIRUBIN 0.6 mg/dL (0.0-1.0)
[2017-11-30 09:06] LABS: ALKALINE PHOSPHATASE 45 IU/L (3-129); CREATININE 0.8 mg/dL (0.6-1.3); GFR ESTIMATE (CALCULATED) > 59 mL/min/
[2017-11-30 09:07] LABS: UREA NITROGEN (BUN) 21 mg/dL (9-23)
[2017-11-30 09:08] LABS: AST (GOT) 30 IU/L (2-34)
[2017-11-30 09:09] LABS: ALT (GPT) 20 IU/L (3-49)
[2017-11-30 09:10] LABS: CREATINE KINASE 147 IU/L (1-294); LIPASE 56 U/L (1.0-51.0)
[2017-11-30 11:27] VITALS: BP 135/98
== END 2017-11-30 11:27 | disposition home or self-care (01) ==
LOC: EME 08:05
PROVIDERS: Nurse Practitioner Family
DX: M79.604 Pain in right leg (principal); M79.605 Pain in left leg; M25.552 Pain in left hip; R10.84 Generalized abdominal pain; M54.9 Dorsalgia, unspecified; G89.29 Other chronic pain; R11.0 Nausea; R19.7 Diarrhea, unspecified; J44.9 Chronic obstructive pulmonary disease, unspecified; I10 Essential (primary) hypertension; Z87.442 Personal history of urinary calculi; Z86.73 Personal history of transient ischemic attack (TIA), and cerebral infarction without residual deficits; F41.9 Anxiety disorder, unspecified; Z88.1 Allergy status to other antibiotic agents; Z88.5 Allergy status to narcotic agent; Z88.6 Allergy status to analgesic agent; Z88.8 Allergy status to other drugs, medicaments and biological substances; F17.200 Nicotine dependence, unspecified, uncomplicated
CPT/HCPCS: 73502; 80053; 82150; 82550; 83690; 85027; 99281; 99284

== ENCOUNTER 2017-12-12 18:45 | Emergency (ER) | payer OTHER ==
[~2017-12-12] VITALS: Ht 154.9 cm; Wt 49.2 kg
[2017-12-12] MEDS ORDERED: ZITHROMAX250 MG PO (22:07)
[2017-12-12] MEDS ORDERED: PREDNISONE50 MG PO (22:07)
[2017-12-12] MEDS ORDERED: PROVENTIL HFA6.7 GM IH (22:07)
[2017-12-12 22:36] VITALS: BP 161/115
== END 2017-12-12 22:38 | disposition home or self-care (01) ==
LOC: EME 18:45
PROVIDERS: Emergency Medicine
DX: J44.1 Chronic obstructive pulmonary disease with (acute) exacerbation (principal); J20.9 Acute bronchitis, unspecified; J44.0 Chronic obstructive pulmonary disease with (acute) lower respiratory infection; F17.200 Nicotine dependence, unspecified, uncomplicated; I10 Essential (primary) hypertension; F41.9 Anxiety disorder, unspecified; Z86.73 Personal history of transient ischemic attack (TIA), and cerebral infarction without residual deficits; Z88.1 Allergy status to other antibiotic agents; Z88.5 Allergy status to narcotic agent
CPT/HCPCS: 71045; 87502; 94640; 99281; 99283; J7644

== ENCOUNTER 2017-12-18 18:38 | Emergency (ER) | payer OTHER ==
[~2017-12-18] VITALS: Ht 154.9 cm; Wt 50.1 kg
[~2017-12-18 18:38] MED LIST changes: +PREDNISONE50 MG PO; +PROVENTIL HFA6.7 GM IH; +ZITHROMAX250 MG PO
[2017-12-18 22:04] VITALS: BP 126/91
== END 2017-12-18 22:04 | disposition home or self-care (01) ==
LOC: EME 18:38
DX: M54.2 Cervicalgia (principal); J44.9 Chronic obstructive pulmonary disease, unspecified; I10 Essential (primary) hypertension; F41.9 Anxiety disorder, unspecified; F25.9 Schizoaffective disorder, unspecified; F17.200 Nicotine dependence, unspecified, uncomplicated; Z79.899 Other long term (current) drug therapy; Z91.14 Patient's other noncompliance with medication regimen; Z87.442 Personal history of urinary calculi; Z85.9 Personal history of malignant neoplasm, unspecified; Z90.710 Acquired absence of both cervix and uterus; Z86.73 Personal history of transient ischemic attack (TIA), and cerebral infarction without residual deficits; Z59.0 Homelessness; Z88.5 Allergy status to narcotic agent; Z88.1 Allergy status to other antibiotic agents; Z88.8 Allergy status to other drugs, medicaments and biological substances; Z88.6 Allergy status to analgesic agent
CPT/HCPCS: 99281; 99283

== ENCOUNTER 2017-12-27 01:49 | Emergency (ER) | payer OTHER ==
[~2017-12-27] VITALS: Ht 154.9 cm; Wt 50.0 kg
[2017-12-27 02:44] VITALS: BP 190/105
== END 2017-12-27 02:45 ==
LOC: EME 01:49
DX: F10.129 Alcohol abuse with intoxication, unspecified (principal); Z88.5 Allergy status to narcotic agent; Z88.1 Allergy status to other antibiotic agents; Z88.6 Allergy status to analgesic agent; Z88.8 Allergy status to other drugs, medicaments and biological substances
CPT/HCPCS: 99281; 99284

== ENCOUNTER 2018-02-20 13:34 | Emergency (ER) | payer OTHER ==
[~2018-02-20] VITALS: Ht 154.9 cm; Wt 46.3 kg
[2018-02-20] MEDS ORDERED: ZOFRAN ODT4 MG PO (14:53)
[2018-02-20 14:57] VITALS: BP 112/67
== END 2018-02-20 14:58 | disposition home or self-care (01) ==
LOC: EME 13:34
DX: Z76.0 Encounter for issue of repeat prescription (principal); J44.9 Chronic obstructive pulmonary disease, unspecified; I10 Essential (primary) hypertension; F41.9 Anxiety disorder, unspecified; F25.9 Schizoaffective disorder, unspecified; F17.200 Nicotine dependence, unspecified, uncomplicated; Z87.19 Personal history of other diseases of the digestive system; Z98.890 Other specified postprocedural states; Z90.710 Acquired absence of both cervix and uterus; Z86.73 Personal history of transient ischemic attack (TIA), and cerebral infarction without residual deficits; Z87.442 Personal history of urinary calculi; Z85.9 Personal history of malignant neoplasm, unspecified; Z88.6 Allergy status to analgesic agent; Z88.5 Allergy status to narcotic agent; Z88.1 Allergy status to other antibiotic agents; Z88.8 Allergy status to other drugs, medicaments and biological substances
CPT/HCPCS: 99281; 99284

== ENCOUNTER 2018-03-27 19:23 | Emergency (ER) | payer OTHER ==
[~2018-03-27] VITALS: Ht 154.9 cm; Wt 43.6 kg
[2018-03-27 19:52] LABS: BASOPHIL (%) 0.5 % (0-1); EOSINOPHIL (%) 0.8 % (0-5); EOSINOPHIL COUNT 0.1 K/uL (0-0.3); HEMATOCRIT 45.1 % (36.0-46.0); HEMOGLOBIN 15.8 G/DL (11.9-15.5); IMMATURE GRANULOCYTE (%) 0.1 % (0.0-0.7); LYMPHOCYTE (%) 20.5 % (15-42); LYMPHOCYTE COUNT 1.7 K/uL (1.0-2.8); MCH 33.5 PG (29.0-34.0); MCV 95.6 FL (83-99); MONOCYTE (%) 8.9 % (3-12); MONOCYTE COUNT 0.8 K/uL (0-0.8); NEUTROPHIL (%) 69.2 % (45-76); NEUTROPHIL COUNT 5.8 K/uL (1.8-6.4); PLATELET COUNT 198 K/uL (156-360); RBC DIS.WIDTH-CV 11.9 % (11.8-14.6); RBC DIS.WIDTH-SD 42.3 % (39-53); RED BLOOD COUNT 4.72 M/uL (3.80-5.20); WHITE BLOOD COUNT 8.4 K/uL (4.1-10.2)
[2018-03-27 20:03] LABS: ALBUMIN 4.5 g/dL (3.2-4.8); CHLORIDE 101 mEq/L (99-109); POTASSIUM 3.4 mEq/L (3.7-5.4); SODIUM 137 mEq/L (136-147)
[2018-03-27 20:06] LABS: GLUCOSE 118 mg/dL (70-99); TOTAL PROTEIN 7.8 g/dL (6.4-8.3)
[2018-03-27 20:09] LABS: ALKALINE PHOSPHATASE 66 IU/L (3-129); CREATININE 0.9 mg/dL (0.6-1.3); GFR ESTIMATE (CALCULATED) > 59 mL/min/; SERUM ETHYL ALCOHOL 52 mg/dL
[2018-03-27 20:11] LABS: AST (GOT) 60 IU/L (2-34); DIRECT BILIRUBIN 0.4 mg/dL (0.0-0.3); UREA NITROGEN (BUN) 9 mg/dL (9-23)
[2018-03-27 20:12] LABS: ALT (GPT) 21 IU/L (3-49)
[2018-03-27 20:13] LABS: LIPASE 73 U/L (1.0-51.0)
[2018-03-27 21:02] LABS: TROP-I INTERPRETATION NEGATIVE; TROPONIN-I 0.02 ng/mL (0.0-0.30)
[2018-03-27 22:18] LABS: APPEARANCE CLEAR ((CLEAR)); BILIRUBIN NEGATIVE; BLOOD SMALL; COLOR YELLOW ((YELLOW)); GLUCOSE (STRIP) NEGATIVE; KETONES NEGATIVE; LEUKOCYTES NEGATIVE; NITRITE NEGATIVE; PROTEIN (STRIP) 100; SPECIFIC GRAVITY 1.014 (1.000-1.030); UROBILINOGEN 0.2 MG/DL (0.2-1.0)
[2018-03-27 22:25] LABS: BACTERIA NONE SEEN /HPF; EPITHELIAL CELLS RARE /HPF; HYALINE CASTS 0-5 /LPF; MUCUS TRACE /LPF; WHITE BLOOD CELLS 0-5 /HPF (0-5)
[2018-03-27 23:11] LABS: TROP-I INTERPRETATION NEGATIVE; TROPONIN-I 0.01 ng/mL (0.0-0.30)
[2018-03-28 00:03] LABS: AMPHETAMINE NEGATIVE (500 ng/mL); BARBITURATES NEGATIVE (200 ng/mL); BENZODIAZEPINES PRESUMPTIVE POSITIVE (150 ng/mL); BUPRENORPHINE PRESUMPTIVE POSITIVE (10 ng/mL); COCAINE NEGATIVE (150 ng/mL); METHADONE NEGATIVE (200 ng/mL); METHAMPHETAMINE NEGATIVE (500 ng/mL); OPIATES (MORPHINE) NEGATIVE (100 ng/mL); OXYCODONE NEGATIVE (100 ng/mL); PHENCYCLIDINE NEGATIVE (25 ng/mL); PROPOXYPHENE NEGATIVE (300 ng/mL); THC CANNABINOIDS NEGATIVE (50 ng/mL); TRICYCLIC ANTIDEPRESSANTS NEGATIVE (300 ng/mL)
[2018-03-28] MEDS ORDERED: ZOFRAN ODT8 MG PO (00:14)
[2018-03-28] MEDS ORDERED: BENTYL20 MG PO (00:14)
[2018-03-28] MEDS ORDERED: LIBRIUM25 MG PO (00:36)
[2018-03-28 00:43] VITALS: BP 164/111
[2018-03-28 00:51] LABS: BENZODIAZEPINES, URINE SCREEN Negative (200 ng/mL)
[2018-03-29] MEDS ORDERED: PRILOSEC20 MG PO (00:17)
[2018-03-29] MEDS ORDERED: ESTRADIOL1 EAC7 TD (00:17)
== END 2018-03-28 00:44 | disposition home or self-care (01) ==
LOC: EME 19:23
PROVIDERS: Physician Assistant
DX: R10.13 Epigastric pain (principal); R10.11 Right upper quadrant pain; G89.29 Other chronic pain; R07.89 Other chest pain; R11.0 Nausea; F91.8 Other conduct disorders; F10.239 Alcohol dependence with withdrawal, unspecified; Z91.19 Patient's noncompliance with other medical treatment and regimen; R03.0 Elevated blood-pressure reading, without diagnosis of hypertension; Z87.442 Personal history of urinary calculi; J44.9 Chronic obstructive pulmonary disease, unspecified; J45.909 Unspecified asthma, uncomplicated; I10 Essential (primary) hypertension; F41.9 Anxiety disorder, unspecified; Z86.73 Personal history of transient ischemic attack (TIA), and cerebral infarction without residual deficits; Z88.5 Allergy status to narcotic agent; Z88.1 Allergy status to other antibiotic agents; Z88.6 Allergy status to analgesic agent; F17.200 Nicotine dependence, unspecified, uncomplicated
CPT/HCPCS: 71046; 76705; 80048; 80076; 81003; 83605; 83690; 84484; 84999; 85025; 93005; 99281; 99285; G0480; J2550; J7050

== ENCOUNTER 2018-03-28 20:18 | Emergency (ER) | payer OTHER ==
[~2018-03-28] VITALS: Ht 154.9 cm; Wt 42.2 kg
[~2018-03-28 20:18] MED LIST changes: +ZOFRAN ODT8 MG PO
[2018-03-28 21:23] LABS: HEMATOCRIT 40.6 % (36.0-46.0); HEMOGLOBIN 14.2 G/DL (11.9-15.5); MCH 33.6 PG (29.0-34.0); MCV 96.2 FL (83-99); PLATELET COUNT 175 K/uL (156-360); RBC DIS.WIDTH-CV 12.2 % (11.8-14.6); RBC DIS.WIDTH-SD 43.1 % (39-53); RED BLOOD COUNT 4.22 M/uL (3.80-5.20); WHITE BLOOD COUNT 7.7 K/uL (4.1-10.2)
[2018-03-28 21:32] LABS: CHLORIDE 101 mEq/L (99-109); POTASSIUM 3.7 mEq/L (3.7-5.4); SODIUM 137 mEq/L (136-147)
[2018-03-28 21:35] LABS: GLUCOSE 102 mg/dL (70-99); TOTAL PROTEIN 6.9 g/dL (6.4-8.3)
[2018-03-28 21:37] LABS: SERUM ETHYL ALCOHOL 18 mg/dL
[2018-03-28 21:38] LABS: ALKALINE PHOSPHATASE 54 IU/L (3-129); CREATININE 0.9 mg/dL (0.6-1.3); GFR ESTIMATE (CALCULATED) > 59 mL/min/
[2018-03-28 21:39] LABS: UREA NITROGEN (BUN) 13 mg/dL (9-23)
[2018-03-28 21:40] LABS: AST (GOT) 51 IU/L (2-34)
[2018-03-28 21:41] LABS: ALT (GPT) 19 IU/L (3-49)
[2018-03-28 21:42] LABS: LIPASE 81 U/L (1.0-51.0)
[2018-03-28 21:44] LABS: TOTAL BILIRUBIN 0.7 mg/dL (0.0-1.0)
[2018-03-28 21:47] LABS: TROP-I INTERPRETATION NEGATIVE; TROPONIN-I < 0.01 ng/mL (0.0-0.30)
[2018-03-28 22:22] LABS: APPEARANCE CLEAR ((CLEAR)); BILIRUBIN NEGATIVE; BLOOD NEGATIVE; COLOR YELLOW ((YELLOW)); GLUCOSE (STRIP) NEGATIVE; KETONES NEGATIVE; LEUKOCYTES NEGATIVE; NITRITE NEGATIVE; PROTEIN (STRIP) 30; SPECIFIC GRAVITY 1.016 (1.000-1.030); UCUL ADDED? NO; UROBILINOGEN 0.2 MG/DL (0.2-1.0)
[2018-03-29] MEDS ORDERED: ESTRADIOL1 EAC7 TD (00:17)
[2018-03-29] MEDS ORDERED: PRILOSEC20 MG PO (00:17)
[2018-03-29 00:32] VITALS: BP 133/83
== END 2018-03-29 00:47 | disposition home or self-care (01) ==
LOC: EME → EDBD 20:18 → EME 03-29 00:47
PROVIDERS: Emergency Medicine
DX: R10.10 Upper abdominal pain, unspecified (principal); R11.0 Nausea; G89.29 Other chronic pain; M54.9 Dorsalgia, unspecified; N28.1 Cyst of kidney, acquired; I10 Essential (primary) hypertension; J44.9 Chronic obstructive pulmonary disease, unspecified; Z87.442 Personal history of urinary calculi; Z90.710 Acquired absence of both cervix and uterus; Z79.890 Hormone replacement therapy; Z86.73 Personal history of transient ischemic attack (TIA), and cerebral infarction without residual deficits; Z72.0 Tobacco use
CPT/HCPCS: 74177; 80053; 81003; 83690; 84484; 85027; 93005; G0480; J3010; J7030